=== PATIENT | female | born 1975 | race Caucasian/White ===

== ENCOUNTER 2017-05-04 17:46 | Emergency (ER) | payer OTHER ==
[~2017-05-04] VITALS: Ht 160 cm; Wt 81.7 kg
[~2017-05-04 17:46] MED LIST: ACET325; ALBIPROI INH; ALBU90OI; ALBU90OI INH; Antivert25 MG PO; Bactrim Ds Tab1 EACH PO; CLIN300 PO; Catapres0.1 MG PO; Cleocin HCl150 MG PO; Clindamycin HC150 MG PO; DIPATR PO; ESTRADIOL1 MG; Estradiol0.5 MG PO; Flomax0.4 MG PO; HYDACE10B PO; HYDACE5 PO; HYDMOR2 PO; HYDMOR4 PO; HYDPAM100; LEVFLO500 PO; LISI20 PO; LISI5; LISI5 PO; METH10; METH10 PO; METH5; Mucinex600 MG PO; Norco 5-325 Ta1 EACH PO; OMEP20ER; ONDA4 PO; OXYC10TA19 PO; OXYC5 PO; PARO25; PRED20 PO; PROM25 PO; Percocet 5-3251 EACH PO; Peridex480 ML SS; Prinivil10 MG; Prinivil10 MG PO; RISPERDAL; SERT100; SERT50 PO; TRAM50 PO; TRAZ50; Tylenol325 MG PO; Ultram50 MG PO; VICODIN ES 7.51 EACH PO; ZOLP10 PO; ZOLP5; Zofran Odt4 MG SL; Zofran4 MG PO
[2017-05-04] MEDS ORDERED: BENZ100A PO (21:02)
[2017-05-04] MEDS ORDERED: Flovent 44 mc10.6 GM INH (21:02)
== END 2017-05-04 21:09 | disposition home or self-care (01) ==
LOC: ER 17:46
DX: J40 Bronchitis, not specified as acute or chronic (principal); K21.9 Gastro-esophageal reflux disease without esophagitis; F17.200 Nicotine dependence, unspecified, uncomplicated; Z88.0 Allergy status to penicillin; Z91.048 Other nonmedicinal substance allergy status; Z88.6 Allergy status to analgesic agent; Z79.899 Other long term (current) drug therapy; Z87.442 Personal history of urinary calculi; Z90.710 Acquired absence of both cervix and uterus; Z90.89 Acquired absence of other organs; Z90.49 Acquired absence of other specified parts of digestive tract
CPT/HCPCS: 94640; 94644; 99283

== ENCOUNTER 2025-03-12 16:14 | Emergency (ER) | payer OTHER ==
[~2025-03-12] VITALS: Ht 160 cm; Wt 86.2 kg
[~2025-03-12 16:14] MED LIST changes: +BENZ100A PO; +Flovent 44 mc10.6 GM INH; +OMEP20ER PO
[2025-03-12 17:41] VITALS: BP 154/86
[2025-03-12] MEDS ORDERED: HYDR1TAB94 PO ×2 (17:46→17:50)
[2025-03-12] MEDS ORDERED: CLIN300 PO (17:46)
[2025-03-12] MEDS ORDERED: LIDOCAINE PO (17:49)
[2025-03-12] MEDS ORDERED: HURRICAINE ONE1 EACH MM (17:50)
== END 2025-03-12 17:59 | disposition home or self-care (01) ==
LOC: ER 16:14
DX: K04.7 Periapical abscess without sinus (principal); K21.9 Gastro-esophageal reflux disease without esophagitis; F17.210 Nicotine dependence, cigarettes, uncomplicated; Z88.0 Allergy status to penicillin; Z88.6 Allergy status to analgesic agent; Z91.09 Other allergy status, other than to drugs and biological substances; Z79.899 Other long term (current) drug therapy; Z59.89 Other problems related to housing and economic circumstances
CPT/HCPCS: 99282; A9270

== ENCOUNTER 2025-03-20 12:14 | Inpatient (IN) | payer OTHER ==
[~2025-03-20] VITALS: Ht 160 cm; Wt 88.5 kg
[~2025-03-20 12:14] MED LIST changes: +HURRICAINE ONE1 EACH MM; +HYDR1TAB94 PO; +LIDOCAINE PO
[2025-03-20 13:04] LABS: BASOPHILS ABSOLUTE AUTO 0.04 K/mm3 (0.00-0.23); BASOPHILS PERCENT AUTO 0 % (0-2); EOSINOPHILS ABSOLUTE AUTO 0.05 K/mm3 (0.00-0.68); EOSINOPHILS PERCENT AUTO 0 % (0-6); Hematocrit 36.2 % (33.0-51.0); Hemoglobin 12.7 g/dL (11.5-16.0); IMMATURE GRAN ABSOLUTE AUTO 0.11 K/mm3 (0.00-0.10); IMMATURE GRAN PERCENT AUTO 1 % (0-1); LYMPHOCYTES ABSOLUTE AUTO 3.20 K/mm3 (0.84-5.20); LYMPHOCYTES PERCENT AUTO 16 % (21-46); MONOCYTES ABSOLUTE AUTO 0.64 K/mm3 (0.16-1.47); MONOCYTES PERCENT AUTO 3 % (4-13); Mean Corpuscular HGB Conc 35.1 g/dL (31.5-36.5); Mean Corpuscular Volume 82 fL (80-100); NEUTROPHILS ABSOLUTE AUTO 16.43 K/mm3 (1.96-9.15); NEUTROPHILS PERCENT AUTO 80 % (41-73); NRBC ABSOLUTE 0.00 K/mm3 (0.00-0.02); NRBC Auto 0.0 /100 WBC (0.0-0.2); Platelet Count 382 K/mm3 (150-400); RDW Coefficient Variation 12.5 % (11.7-14.2); RDW Standard Deviation 37.4 fL (35.1-46.3)
[2025-03-20 13:19] LABS: Alanine Aminotransfer (ALT/SGP 23.0 U/L (12-78); Albumin, Blood 3.8 g/dL (3.4-5.0); Albumin/Globulin Ratio 0.8 (0.8-1.8); Anion Gap 11.0 mmol/L (3-11); Aspartate Aminotrans (AST/SGOT 15.0 U/L (12-37); Bilirubin, Total 0.4 mg/dL (0.1-1.0); Blood Urea Nitrogen 28.0 mg/dL (8-24); CO2, Blood 20.0 mmol/L (21-32); Calcium, Blood 9.5 mg/dL (8.5-10.1); Chloride, Blood 100.0 mmol/L (98-108); Creatinine, Blood 1.2 mg/dL (0.40-1.00); Globulin, Blood 4.6 g/dL (2.2-4.0); Glucose, Blood 143.0 mg/dL (70-99); Potassium, Blood 4.2 mmol/L (3.5-5.5); Sodium, Blood 127.0 mmol/L (136-145); Total Protein, Blood 8.4 g/dL (6.4-8.2)
[2025-03-20] MEDS ORDERED: NS 1,000 ML IV SCH ×3 (13:35→18:05)
[2025-03-20] MEDS ORDERED: Morphine Sulfate 4 MG/1 ML Injection IV ONE ×2 (13:35→14:45)
[2025-03-20] MEDS ORDERED: ALPR.5 PO (15:12)
[2025-03-20] MEDS ORDERED: METH40 PO (16:08)
[2025-03-20] MEDS ORDERED: IBUP200 PO (16:10)
[2025-03-20] MEDS ORDERED: Clindamycin Phosphate 300 MG in NS 50 ML IV ONE (16:20)
[2025-03-20] MEDS ORDERED: Ketorolac Tromethamine 15mg Vial IV ONE (16:55)
[2025-03-20] MEDS ORDERED: Ondansetron HCl 2 MG / ML 2ML Vial IV PRN (18:05)
[2025-03-20] MEDS ORDERED: Vancomycin (Pharmacy Consult) IV SCH (18:05)
[2025-03-20] MEDS ORDERED: OxyCODONE 5 mg/Acetamin 325 mg TABLET PO PRN (18:10)
[2025-03-20] MEDS ORDERED: Metoclopramide HCl 5MG / ML 2ML Vial IV PRN (18:10)
[2025-03-20] MEDS ORDERED: FLU VACC TS2025-26(6MOS UP)/PF 45 MCG/0.5 ML SYRINGE IM SCH (18:10)
[2025-03-20] MEDS ORDERED: Ketorolac Tromethamine 15mg Vial IV PRN (18:35)
[2025-03-20] MEDS ORDERED: CefTRIAXone Sodium 2,000 MG in NS 100 ML IV SCH (19:00)
[2025-03-20 20:11] VITALS: BP 137/76
[2025-03-20] MEDS ORDERED: Lactobacil 2-S.Thermo-Bifido 1 1 Cap PO SCH (21:00)
[2025-03-21 04:00] VITALS: BP 121/54
[2025-03-21 05:25] LABS: BASOPHILS ABSOLUTE AUTO 0.04 K/mm3 (0.00-0.23); BASOPHILS PERCENT AUTO 0 % (0-2); EOSINOPHILS ABSOLUTE AUTO 0.04 K/mm3 (0.00-0.68); EOSINOPHILS PERCENT AUTO 0 % (0-6); Hematocrit 32.4 % (33.0-51.0); Hemoglobin 11.1 g/dL (11.5-16.0); IMMATURE GRAN ABSOLUTE AUTO 0.07 K/mm3 (0.00-0.10); IMMATURE GRAN PERCENT AUTO 1 % (0-1); LYMPHOCYTES ABSOLUTE AUTO 1.90 K/mm3 (0.84-5.20); LYMPHOCYTES PERCENT AUTO 13 % (21-46); MONOCYTES ABSOLUTE AUTO 0.97 K/mm3 (0.16-1.47); MONOCYTES PERCENT AUTO 7 % (4-13); Mean Corpuscular HGB Conc 34.3 g/dL (31.5-36.5); Mean Corpuscular Volume 84 fL (80-100); NEUTROPHILS ABSOLUTE AUTO 12.01 K/mm3 (1.96-9.15); NEUTROPHILS PERCENT AUTO 80 % (41-73); NRBC ABSOLUTE 0.00 K/mm3 (0.00-0.02); NRBC Auto 0.0 /100 WBC (0.0-0.2); Platelet Count 309 K/mm3 (150-400); RDW Coefficient Variation 12.7 % (11.7-14.2); RDW Standard Deviation 38.5 fL (35.1-46.3)
[2025-03-21 05:43] LABS: Alanine Aminotransfer (ALT/SGP 17.0 U/L (12-78); Albumin, Blood 3.1 g/dL (3.4-5.0); Albumin/Globulin Ratio 0.8 (0.8-1.8); Anion Gap 10.0 mmol/L (3-11); Aspartate Aminotrans (AST/SGOT 10.0 U/L (12-37); Bilirubin, Total 0.5 mg/dL (0.1-1.0); Blood Urea Nitrogen 17.0 mg/dL (8-24); CO2, Blood 20.0 mmol/L (21-32); Calcium, Blood 8.7 mg/dL (8.5-10.1); Chloride, Blood 108.0 mmol/L (98-108); Creatinine, Blood 0.82 mg/dL (0.40-1.00); Globulin, Blood 3.9 g/dL (2.2-4.0); Glucose, Blood 99.0 mg/dL (70-99); Magnesium, Blood 1.7 mg/dL (1.6-2.4); Potassium, Blood 4.2 mmol/L (3.5-5.5); Sodium, Blood 134.0 mmol/L (136-145); Total Protein, Blood 7.0 g/dL (6.4-8.2)
--- NOTE | 2025-03-21 06:30 | NUR ---
CALL PLACED TO [facility], DOSE VERIFIED AT [facility]
--- NOTE | 2025-03-21 06:41 | NUR ---
SHIFT SUMMARY PT A&OX4 AND ANSWERS QUESTIONS APPROPRIATELY. PT HERE FOR INTRACTABLE PAIN, MEDICATED PER [facility] FOR PAIN AND SCHEDULED MEDICATIONS. VSS, NO COMPLAINTS OF CP/PRESURE OR SOB. PT SPEND MOST OF SHIFT IN BED RESTING. [facility] DOSE VERIFIED BY [facility]. NO ACUTE EVENTS DURING SHIFT. PT LEFT IN A POSITION OF SAFETY WITH FALL PRECAUTIONS IN PLACE AND CALL LIGHT IN REACH.
[2025-03-21 07:35] VITALS: BP 123/82
[2025-03-21] MEDS ORDERED: MetroNIDAZOLE 500MG/NS 100 ml 100 ML IV SCH (08:30)
[2025-03-21] MEDS ORDERED: Enoxaparin 40 MG/0.4 ML SYR SC SCH (09:00)
[2025-03-21 16:06] VITALS: BP 120/64
--- NOTE | 2025-03-21 17:58 | NUR ---
PATIENT A/O AND COOPERATIVE WITH CARE. PATIENT RIGHT SIDE OF FACE SWOLLEN AND PATIENT THOUGHT THE FRONT OF HER CHIN WAS A LITTLE NUMB BUT RELATED TO THE SWELLING IN HER JAW. PATIENT REPORTED THAT SHE HAD 2 WHITE BLISTERS IN HER MOUTH AND ONE POPPED ABOUT 1730 AFTER SCAN DONE AT BEDSIDE. PATIENT REPORTED SOME DRAINAGE AND FEELS LIKE THE OTHER ONE WILL POP SOON. PAIN MEDS GIVEN PER MAR AND PATIENT REQUESTING MEDS NEEDED. CALL LIGHT WITHIN REACH AND NO CONCERNS.
[2025-03-21 21:21] VITALS: BP 113/56
[2025-03-22 00:38] VITALS: BP 99/50
[2025-03-22 02:59] VITALS: BP 95/61
--- NOTE | 2025-03-22 05:31 | NUR ---
PT MEDICATED PER EMAR OVER NIGHT D/T PAIN IN JAW. REMAINS INDEPENDENT IN ROOM. NO ACUTE EVENTS.
[2025-03-22 08:22] VITALS: BP 135/74
[2025-03-22 09:09] LABS: Vancomycin, Trough 13.6 ug/mL (5.0-10.0)
[2025-03-22 16:21] VITALS: BP 139/81
--- NOTE | 2025-03-22 18:27 | NUR ---
ASSUMED CARE. PT UP IN BED C/O PAIN TO RIGHT JAW, REQUESTING THAT WE MEDICATE HER EVERY 2 HOURS FOR PAIN TO STAY ON TOP OF IT. PT UNDERSTANDS THAT SHE WILL NEED TO COMMUNICATE WITH US REGARDING PAIN AND WE WILL TRY TO KEEP IT MANAGEABLE. IV INFUSING TO LEFT FA, PT IND IN ROOM CALL LIGHT WITHIN REACH, MAKES NEEDS KNOWN. PT DID WELL THROUGHOUT THE SHIFT, PAIN MANAGED, AND DIET ADVANACED TO SOFT TEXTURED FOODS. WILL CONT TO MONITOR
[2025-03-22 20:19] VITALS: BP 129/78
[2025-03-23 04:06] VITALS: BP 129/79
--- NOTE | 2025-03-23 05:17 | NUR ---
PATIENT MEDICATED PER EMAR WITH PRN'S UPON REQUEST. NO ACUTE EVENTS. VITALS STABLE.
[2025-03-23 08:02] VITALS: BP 140/87
[2025-03-23 09:17] LABS: BASOPHILS ABSOLUTE AUTO 0.05 K/mm3 (0.00-0.23); BASOPHILS PERCENT AUTO 1 % (0-2); EOSINOPHILS ABSOLUTE AUTO 0.12 K/mm3 (0.00-0.68); EOSINOPHILS PERCENT AUTO 1 % (0-6); Hematocrit 30.4 % (33.0-51.0); Hemoglobin 10.3 g/dL (11.5-16.0); IMMATURE GRAN ABSOLUTE AUTO 0.11 K/mm3 (0.00-0.10); IMMATURE GRAN PERCENT AUTO 1 % (0-1); LYMPHOCYTES ABSOLUTE AUTO 2.42 K/mm3 (0.84-5.20); LYMPHOCYTES PERCENT AUTO 23 % (21-46); MONOCYTES ABSOLUTE AUTO 0.51 K/mm3 (0.16-1.47); MONOCYTES PERCENT AUTO 5 % (4-13); Mean Corpuscular HGB Conc 33.9 g/dL (31.5-36.5); Mean Corpuscular Volume 85 fL (80-100); NEUTROPHILS ABSOLUTE AUTO 7.52 K/mm3 (1.96-9.15); NEUTROPHILS PERCENT AUTO 70 % (41-73); NRBC ABSOLUTE 0.00 K/mm3 (0.00-0.02); NRBC Auto 0.0 /100 WBC (0.0-0.2); Platelet Count 282 K/mm3 (150-400); RDW Coefficient Variation 12.8 % (11.7-14.2); RDW Standard Deviation 39.4 fL (35.1-46.3)
[2025-03-23 09:32] LABS: Anion Gap 10.0 mmol/L (3-11); Blood Urea Nitrogen 15.0 mg/dL (8-24); CO2, Blood 21.0 mmol/L (21-32); Calcium, Blood 9.0 mg/dL (8.5-10.1); Chloride, Blood 106.0 mmol/L (98-108); Creatinine, Blood 0.76 mg/dL (0.40-1.00); Glucose, Blood 134.0 mg/dL (70-99); Potassium, Blood 4.1 mmol/L (3.5-5.5); Sodium, Blood 133.0 mmol/L (136-145)
[2025-03-23] MEDS ORDERED: MASOPHEN325 M3 PO (12:40)
[2025-03-23] MEDS ORDERED: PERIDEX15 ML MM (12:41)
[2025-03-23] MEDS ORDERED: VISBIOME 112.51 EACH PO (12:42)
[2025-03-23] MEDS ORDERED: CLIN300 PO (12:42)
--- NOTE | 2025-03-23 13:23 | NUR ---
DISCHARGE INSTRUCTIONS REVIEWED WITH PATIENT AND QUESTIONS ANSWERED. PT STATE SHE FEELS READY TO DISCHARGE AND VERBALIZES SHE WILL RETURN TO ER IMMEDIATELY IF ANY INCREASE IN PAIN, REDNESS, SWELLING. PT WAITING FOR SISTER TO ARRIVE TO TAKE HER HOME
--- NOTE | 2025-03-23 13:40 | NUR ---
[id number] DISCHARGED AMBULATORY WITH HER SISTER AND ALL BELONGINGS
== END 2025-03-23 13:39 | disposition home or self-care (01) | DRG 872 ==
LOC: ER 12:14 → MEDS 18:03
PROVIDERS: Internal Medicine; Nurse Practitioner Acute Care; Physician Assistant; ADMIT Student in an Organized Health Care Education/Training Program
DX: A41.9 Sepsis, unspecified organism (principal); N17.9 Acute kidney failure, unspecified; E87.1 Hypo-osmolality and hyponatremia; F11.20 Opioid dependence, uncomplicated; L03.211 Cellulitis of face; R65.20 Severe sepsis without septic shock; E86.0 Dehydration; G89.4 Chronic pain syndrome; K21.9 Gastro-esophageal reflux disease without esophagitis; I10 Essential (primary) hypertension; F41.9 Anxiety disorder, unspecified; M06.9 Rheumatoid arthritis, unspecified; M32.9 Systemic lupus erythematosus, unspecified; F17.210 Nicotine dependence, cigarettes, uncomplicated; K04.7 Periapical abscess without sinus; M19.90 Unspecified osteoarthritis, unspecified site; J44.9 Chronic obstructive pulmonary disease, unspecified; E86.1 Hypovolemia; Z88.0 Allergy status to penicillin; Z88.6 Allergy status to analgesic agent; Z79.51 Long term (current) use of inhaled steroids
CPT/HCPCS: 36415; 70487; 76536; 80048; 80053; 80202; 83605; 83735; 85025; 87040; 96361; 96365-59; 96375; 96376; 99284-25; A9270; J0696; J1650; J1885; J2270; J3373; J7030; J7040; J7050; Q9967